=== PATIENT | female | born 1945 | race Caucasian/White ===

== ENCOUNTER 2016-12-30 09:52 | Emergency (ER) | payer MEDICARE, BC ==
[2016-12-30 11:13] VITALS: BP 157/67
--- NOTE | 2016-12-30 12:20 | UC ---
Abdominal Pain Female HPI - HPI Summary HPI Summary: The patient comes in today for: 1. RUQ pain: Onset: 3 days ago. Palliative/provocative: Nothing makes the pain better or worse. It has been getting worse. Quality: [place] Region: RUQ Severity: 10/10 though she is not crying. Time: Cosntant. Associated symptoms: The patient is on dialysis MWF. 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 Fevers: None, but she states that she has chills from time to time. Vomiting: None. Previous liver disease: She has a history of cysts. She had both kidneys removed due to polycystic kidney disease and frequent rupturing of the cysts. They were removed 8 weeks ago. She has her gallbladder. * - History of Current Complaint Chief Complaint: UCGI Stated Complaint: UPPER RIGHT ABDOMINAL PAIN 3 DAYS Time Seen by Provider: 12/30/16 11:52 Hx Last Menstrual Period: years ago. ?: No Allergies/Adverse Reactions: Allergies Allergy/AdvReac Type Severity Reaction Status Date / Time Penicillins Allergy Intermediate Swelling Verified 12/30/16 11:13 Erythromycin Allergy Mild Nausea And Verified 12/30/16 11:13 Vomiting Home Medications: Home Medications Cinacalcet TAB* [Sensipar TAB*] 60 mg PO DAILY 12/30/16 [History Confirmed 12/30] PMH/Surg Hx/FS Hx/Imm Hx Previously Healthy: No Endocrine History Of: Reports: Thyroid Disease, Hypothyroidism, Dyslipidemia Denies: Diabetes, Hyperthyroidism Cardiovascular History Of: Reports: Hypertension Denies: Cardiac Disorders, Pacemaker/ICD, Myocardial Infarction, Congestive Heart Failure, Atrial Fibrillation, Deep Vein Thrombosis, Bleeding Disorders Respiratory History Of: Reports: COPD Denies: Asthma GI/ History Of: Reports: Gastroesophageal Reflux, Ulcer, Renal Disease - On dialysis--both kidneys removed due to polycystic kidney disease. Denies: Gastrointestinal Bleed, Gall Bladder Disease, Kidney Stones, Diverticulitis, Urosepsis Neurological History Of: Denies: TIA, CVA, Dementia, Seizures, Migraine Psychological History Of: Denies: Anxiety, Depression, Bipolar Disorder, Schizophrenia, Post Traumatic Stress Disorder Cancer History Of: Denies: Lung Cancer, Colorectal Cancer, Breast Cancer, Cervical Cancer Other History Of: Negative For: HIV, Hepatitis B, Hepatitis C, Anticoagulant Therapy - Surgical History Surgical History: Yes Surgery Procedure, Year, and Place: bladder surg 2003, left arm fistula 09/2012, bowel surgery, bilateral kindeys removed 8 weeks ago - Family History Known Family History: Positive: Hypertension Negative: Cardiac Disease - Social History Occupation: Unemployed Alcohol Use: None Substance Use Type: None Smoking Status (MU): Never Smoked Tobacco - Immunization History Most Recent Influenza Vaccination: 06/2015 Review of Systems Constitutional: Negative Skin: Negative Eyes: Negative ENT: Negative Respiratory: Negative Cardiovascular: Negative Gastrointestinal: Abdominal Pain Genitourinary: Negative Motor: Negative Neurovascular: Negative Musculoskeletal: Negative Neurological: Negative All Other Systems Reviewed And Are Negative: Yes Physical Exam Triage Information Reviewed: Yes Appearance: Well-Appearing, Well-Nourished, Pain Distress Vital Signs: Initial Vital Signs Temp 98.2 F 12/30/16 11:05 Pulse 71 12/30/16 11:05 Resp 18 12/30/16 11:05 BP 157/67 12/30/16 11:05 Pulse Ox 97 12/30/16 11:05 Vital Signs Reviewed: Yes Eyes: Positive: Conjunctiva Clear. Negative: Discharge ENT: Positive: Hearing grossly normal. Negative: Pharyngeal erythema, Nasal congestion, Nasal drainage, TM bulging, TM dull, TM red, Tonsillar swelling, Tonsillar exudate Dental: Negative: Gross Decay/Caries @, Dental Fracture @ Neck: Positive: Supple, Nontender, No Lymphadenopathy. Negative: Nuchal Rigidity Respiratory: Positive: Chest non-tender, Lungs clear, No respiratory distress, No accessory muscle use. Negative: Crackles, Wheezing Cardiovascular: Positive: RRR, No Murmur Abdomen Description: Positive: No Organomegaly, Soft, Distended, Guarding. Negative: Nontender - She had percussion tenderness in the RUQ. There is tenderness along the inferior right rib margin. There were no masses. There is a well-healed surgical scar. No rebound. Musculoskeletal: Positive: Strength Intact, ROM Intact Neurological: Positive: Alert, Muscle Tone Normal Psychological: Positive: Age Appropriate Behavior, Consolable Skin: Negative: rashes, breakdown Diagnostics - Laboratory Diagnostic Studies Completed/Ordered: No studies done at [facility]. Discussed diagnostic options. Patient was encouraged to get work up of abdominal pain in ER where blood testing as well as imaging (US/CT abdomen) if needed is possible. Abd Pain Female Course/Dx - Differential Dx/Diagnosis Provider Diagnoses: Abdominal pain RUQ--etiology (gallbladder disease, hx of "liver cysts", vs other causes) Discharge - Discharge Plan Condition: Stable Disposition: HOME Additional Instructions: Please go directly to [facility] ER.
== END 2016-12-30 12:49 | disposition left against medical advice (07) ==
LOC: UCCORT 09:52
DX: R10.11 Right upper quadrant pain (principal); E03.9 Hypothyroidism, unspecified; E78.5 Hyperlipidemia, unspecified; I10 Essential (primary) hypertension; Q61.3 Polycystic kidney, unspecified; Z90.5 Acquired absence of kidney; Z88.1 Allergy status to other antibiotic agents; Z88.0 Allergy status to penicillin
CPT/HCPCS: 99212; G0463